=== PATIENT | male | born 1965 | race Caucasian/White ===

== ENCOUNTER 2018-02-21 16:51 | Emergency (ER) | payer MEDICAID ==
[2018-02-21 16:57] VITALS: BP 146/83
[2018-02-21] MEDS ORDERED: CEPHALEXIN 250 MG Prepack 8 PO ONE (17:30)
--- NOTE | 2018-02-21 17:32 | ED Physician Documentation ---
PD HPI WOUND RECHECK - Stated complaint Stated Complaint: RT LEG WOUND/SHARP PX UP LEG - Chief complaint Chief Complaint: Wound - Histroy obtained from History obtained from: Patient - History of Present Illness Location: Other (He was pressure washing about 2 years ago and got a little lesion from it on his right ankle. Over the last month after scratching at the area of redness has increased and he has severe itchiness of the area that is now spreading up the leg.) Review of Systems Constitutional: denies: Fever, Chills, Myalgias, Fatigue, Weight Loss, Sweats Cardiac: denies: Chest pain / pressure, Palpitations Respiratory: denies: Dyspnea, Cough PD PAST MEDICAL HISTORY - Past Medical History GI: Hepatitis - Past Surgical History Past Surgical History: Yes General: Appendectomy - Present Medications Home Medications: Ambulatory Orders Medication Instructions Recorded Confirmed Cephalexin [Keflex] 500 mg PO QID #40 capsule 02/21/18 - Allergies Allergies/Adverse Reactions: Allergies Allergy/AdvReac Type Severity Reaction Status Date / Time No Known Drug Allergies Allergy Verified 02/21/18 16:57 - Social History Does the pt smoke?: Yes Smoking Status: Current every day smoker Does the pt drink ETOH?: Yes Does the pt have substance abuse?: Yes - Immunizations Immunizations are current?: Yes - POLST Patient has POLST: No PD ED PE NORMAL - Vitals Vital signs reviewed: Yes - General General: Alert and oriented X 3, No acute distress - Derm Derm: Other (There is a 3 x 3 cm of slightly denuded area over the medial malleolus of the right ankle with surrounding cellulitis) - Neuro Neuro: Alert and oriented X 3, Normal speech Results - Vitals Vitals: Vital Signs - 24 hr 02/21/18 16:53 Temperature 36.5 C Heart Rate 110 H Respiratory 16 Rate Blood Pressure 146/83 H O2 Saturation 100 Oxygen O2 Source Room air PD MEDICAL DECISION MAKING - Sepsis Event Vital Signs: Vital Signs - 24 hr 02/21/18 16:53 Temperature 36.5 C Heart Rate 110 H Respiratory 16 Rate Blood Pressure 146/83 H O2 Saturation 100 Oxygen O2 Source Room air Departure - Departure Disposition: 01 Home, Self Care Clinical Impression: Cellulitis Condition: Good Record reviewed to determine appropriate education?: Yes Instructions: ED Cellulitis Facial Follow-Up: [facility] [Provider Group] Prescriptions: Cephalexin [Keflex] 500 mg PO QID #40 capsule Comments: Your blood pressure was elevated today on check into the emergency department. This does not mean that you have hypertension, it is a common phenomenon to come to the emergency department and have elevated blood pressure. I recommend that you see your primary care physician within the week to have it rechecked when you are feeling better. Discharge Date/Time: 02/21/18 17:50
== END 2018-02-21 17:50 | disposition home or self-care (01) ==
LOC: ED 16:51
DX: L03.115 Cellulitis of right lower limb (principal); R03.0 Elevated blood-pressure reading, without diagnosis of hypertension; F17.200 Nicotine dependence, unspecified, uncomplicated
CPT/HCPCS: 99283

== ENCOUNTER 2018-07-15 13:33 | Observation (INO) | payer MEDICAID, OTHER ==
[2018-07-15] MEDS ORDERED: cefTRIAXone 1 GM in SODIUM CHLORIDE 0.9% MINIBAG 100 ML IV STA (14:38)
[2018-07-15 15:12] LABS: BASOPHILS # (AUTO) 0.1 10^3/uL (0.0-0.1); BASOPHILS % (AUTO) 0.7 %; EOSINOPHILS # (AUTO) 0.5 10^3/uL (0.0-0.7); EOSINOPHILS % (AUTO) 4.2 %; HGB - HEMOGLOBIN 13.3 g/dL (14.0-18.0); LYMPHOCYTES # (AUTO) 3.1 10^3/uL (1.5-3.5); LYMPHOCYTES % (AUTO) 25.7 %; MEAN CORPUSCULAR HEMOGLOBIN 30.6 pg (27.0-31.0); MEAN CORPUSCULAR HGB CONC 33.7 g/dL (32.0-36.0); MONOCYTES % (AUTO) 7.9 %; NEUTROPHILS # (AUTO) 7.5 10^3/uL (1.5-6.6); NEUTROPHILS % (AUTO) 61.5 %; PLT - PLATELET COUNT 422 10^3/uL (130-450); RED BLOOD COUNT 4.33 10^6/uL (4.70-6.10); RED CELL DISTRIBUTION WIDTH 13.8 % (12.0-15.0); WHITE BLOOD COUNT 12.1 x10^3/uL (4.8-10.8)
[2018-07-15 15:22] LABS: ALBUMIN 3.7 g/dL (3.2-5.5); ALKALINE PHOSPHATASE 84 IU/L (42-121); ALT ALANINE AMINOTRANSFERASE 20 IU/L (10-60); AST ASPARTATE AMINOTRANSFERASE 19 IU/L (10-42); BILIRUBIN,TOTAL < 0.2 mg/dL (0.2-1.0); BUN - BLOOD UREA NITROGEN 21 mg/dL (6-20); CALCIUM 8.9 mg/dL (8.5-10.3); CARBON DIOXIDE - CO2 28 mmol/L (21-32); CHLORIDE 101 mmol/L (101-111); CREATININE 0.8 mg/dL (0.6-1.2); GFR - MDRD 102 (>89); GLUCOSE 120 mg/dL (70-100); LIPASE 28 U/L (22-51); SODIUM 137 mmol/L (135-145); TOTAL PROTEIN 7.3 g/dL (6.7-8.2)
--- NOTE | 2018-07-15 15:43 | ED Physician Documentation ---
PD HPI SKIN - Stated complaint Stated Complaint: R LEG SWELLING/PX - Chief complaint Chief Complaint: Wound - History obtained from History obtained from: Patient - History of Present Illness Timing - details: Gradual onset Location: RLE Quality / character: Painful, Draining Recently seen: Clinic (Sent here from outpatient clinic.) - Treatment prior to arrival Treatment prior to arrival: Doxycycline for the past three days. - Additional information Additional information: The patient is a 52-year-old male who presents with redness and swelling of his right lower leg. He has a history of cellulitis that initially started 4 months ago. During this period of time he has been treated with 3 different courses of antibiotics, including doxycycline, Bactrim, and cephalexin. It has improved with antibiotics in the past. However during the past week it has become worse despite antibiotic treatment with doxycycline for the past 3 days. Prior to that he had been off of antibiotics for about 6 weeks. Last night his dressings and bedding became completely soaked with leakage of fluid from the cellulitic leg. He denies fever. He has no history of diabetes. He denies any recent traumatic injury to his leg. Review of Systems Constitutional: denies: Fever Nose: denies: Congestion Throat: denies: Sore throat Cardiac: denies: Chest pain / pressure Respiratory: denies: Dyspnea, Cough GI: denies: Abdominal Pain, Nausea, Vomiting : denies: Dysuria Skin: reports: Other (Erythema of right lower extremity.) Musculoskeletal: reports: Extremity swelling (Swelling of right lower extremity, with fluid weepage.). denies: Back pain Neurologic: denies: Focal weakness, Numbness, Headache PD PAST MEDICAL HISTORY - Past Medical History Cardiovascular: Hypertension Endocrine/Autoimmune: None GI: Hepatitis - Past Surgical History Past Surgical History: Yes General: Appendectomy - Present Medications Home Medications: Ambulatory Orders Medication Instructions Recorded Confirmed Amlodipine Besylate 10 mg PO DAILY 07/15/18 07/15/18 Doxycycline Hyclate 100 mg PO BID 07/15/18 07/15/18 Losartan Potassium 50 mg PO DAILY 07/15/18 07/15/18 Sulfamethox/Trimeth 800/160 1 tab PO BID 07/15/18 07/15/18 [Bactrim Ds 800/160] hydroCHLOROthiazide 25 mg PO DAILY 07/15/18 07/15/18 [Hydrochlorothiazide] - Allergies Allergies/Adverse Reactions: Allergies Allergy/AdvReac Type Severity Reaction Status Date / Time No Known Drug Allergies Allergy Verified 07/15/18 13:47 - Social History Does the pt smoke?: Yes Smoking Status: Current every day smoker Does the pt drink ETOH?: Yes Does the pt have substance abuse?: Yes - Immunizations Immunizations are current?: Yes - POLST Patient has POLST: No PD ED PE NORMAL - Vitals Vital signs reviewed: Yes (Initially tachycardic.) - General General: Alert and oriented X 3, Well developed/nourished - HEENT HEENT: Atraumatic, Pharynx benign - Neck Neck: No adenopathy, No JVD - Cardiac Cardiac: No murmur, Other (Rapid rate, regular rhythm.) - Respiratory Respiratory: No respiratory distress, Clear bilaterally - Abdomen Abdomen: Soft, Non tender - Back Back: No CVA TTP - Extremities Extremities: No calf tenderness / cord, Other (There is erythema of the right lower extremity from just below the knee down to the ankle. There is transudate of weeping from cellulitic area. There is slight warmth to palpation. Distal neurovascular is intact.) - Neuro Neuro: Alert and oriented X 3, No motor deficit, No sensory deficit Results - Vitals Vitals: Vital Signs - 24 hr 07/15/18 13:43 Temperature 36.3 C L Heart Rate 114 H Respiratory 18 Rate Blood Pressure 134/89 H O2 Saturation 100 Oxygen O2 Source Room air - Labs Labs: Microbiology 07/15/18 14:30 Wound Culture - Preliminary Right Lower Extremity Laboratory Tests 07/15/18 07/15/18 15:00 15:00 WBC 12.1 H RBC 4.33 L Hgb 13.3 L Hct 39.4 L MCV 91.0 MCH 30.6 MCHC 33.7 RDW 13.8 Plt Count 422 MPV 7.0 L Neut # (Auto) 7.5 H Lymph # (Auto) 3.1 [place] # (Auto) 1.0 Eos # (Auto) 0.5 Baso # (Auto) 0.1 Absolute Nucleated RBC 0.00 Nucleated RBC % 0.0 Sodium 137 Potassium 3.7 Chloride 101 Carbon Dioxide 28 Anion Gap 8.0 BUN 21 H Creatinine 0.8 Estimated GFR (MDRD) 102 Glucose 120 H Calcium 8.9 Total Bilirubin < 0.2 L AST 19 ALT 20 Alkaline Phosphatase 84 Total Protein 7.3 Albumin 3.7 Globulin 3.6 Albumin/Globulin Ratio 1.0 Lipase 28 PD MEDICAL DECISION MAKING - ED course Complexity details: reviewed old records, reviewed results, re-evaluated patient, considered differential, d/w patient, d/w community health consultant ED course: The patient's presentation is significant for cellulitis of the right lower extremity, progressing despite outpatient oral antibiotics. His presentation does not suggest sepsis. I doubt DVT. His white blood cell count is mildly elevated at 12.1. Treatment in the emergency department included administration of ceftriaxone 1 g IV. A swab of a weeping blister was sent to the lab for culture and sensitivity. I discussed his condition with Dr. Nielsen, who accepts him for further evaluation and treatment. Departure - Departure Disposition: ED Place in Observation Clinical Impression: Cellulitis Condition: Stable Discharge Date/Time: 07/15/18 17:15
[2018-07-15] MEDS ORDERED: ACETAMINOPHEN 325 MG TABLET PO PRN (16:09)
[2018-07-15] MEDS ORDERED: ONDANSETRON 4 MG/2 ML VIAL IVP PRN (16:09)
[2018-07-15] MEDS ORDERED: ZOLPIDEM 5 MG TABLET PO PRN (16:09)
[2018-07-15] MEDS ORDERED: SODIUM CHLORIDE FLUSH 0.9% 10 ML SYRINGE IVP PRN (16:09)
[2018-07-15] MEDS ORDERED: oxyCODONE 5 MG TABLET PO PRN ×2 (16:09)
[2018-07-15] MEDS ORDERED: PROCHLORPERAZINE 10 MG/2 ML VIAL IVP PRN (16:09)
[2018-07-15] MEDS ORDERED: PROMETHAZINE 25 MG/1 ML VIAL IM PRN (16:09)
--- NOTE | 2018-07-15 16:43 | HISTORY & PHYSICAL EXAMINATION ---
Chief Complaint - Chief Complaint Chief Complaint: Right leg redness, swelling and pain History of Present Illness - Admitted From Admitted From:: Emergency department - History Obtained From Records Reviewed: Yes History obtained from: Patient Exam Limitations: None - History of Present Illness HPI Comment/Other: Patient is a very pleasant 52-year-old gentleman with a past medical history significant for hypertension, multiple fractures of his right foot due to a work-related accident and recurrent cellulitis of his right lower extremity over the last 4 months. The patient states that he first noticed that he had redness and swelling of his right leg about 4 months ago and at that time was placed on antibiotics. The patient states that he was seen in the emergency department at [facility]. He states that the redness seemed to improve and then a few weeks later he developed it again. He states this time he was seen at [facility] and again placed on antibiotics. He states that he has had 2-3 more occurrences over the last 4 months and each time it was treated outpatient with antibiotics. He has never been hospitalized with the infection of his right leg. He states 2 weeks ago he began noticing that he was again having redness he states that it was localized in his right ankle up to his mid tinajero. He states that 5 days ago it had gotten significantly worse and 3 days ago he went to see his primary care physician who prescribed him doxycycline and Bactrim. He states that since taking those medications the cellulitis has worsened and he is having increasing pain in his right leg with increasing redness and swelling. He states that the area of redness is spread from around his ankle and mid tinajero all the way down his right foot and up to nearly his kneecap. The patient states that he has had chills at home but no fevers. The patient states that his leg has been losing but he has not noticed any pus. Patient denies any headaches, blurred vision, runny nose, sore throat, nasal congestion, difficulty swallowing, chest pain, shortness of air, orthopnea, PND, cough, abdominal pain, nausea, vomiting, diarrhea, constipation, urinary urgency, urinary frequency, dysuria, polyuria, polydipsia, back pain, neck stiffness, recent unintentional weight loss, changes in his appetite, muscle aches, joint pains, hair loss, night sweats or any focal neurologic deficits. The patient does admit to a rash since starting the antibiotics on his arm and abdominal wall. He states it has been very itchy and is localized. On presentation to the emergency department the patient was afebrile but he was tachycardic and slightly hypertensive. The patient was not in any respiratory distress and was saturating well on room air. The patient underwent routine lab work which did reveal a leukocytosis of 12.1. The patient's lab work was otherwise only remarkable for a slightly elevated glucose of 120. The patient had a significantly swollen, red and tender right lower extremity concerning for a cellulitis. Given that the patient had failed outpatient treatment with oral antibiotics the patient was placed in observation for IV antibiotics and treatment of his right lower extremity cellulitis. History - Past Medical History Cardiovascular: reports: Hypertension Endocrine/Autoimmune: reports: None GI: reports: Hepatitis MRSA Hx?: No Other Past Medical History: Multiple fractures of the right foot - Past Surgical History General: reports: Appendectomy - Family & Social History Family History: Mother: Diabetes, Type 2, Other family: Cancer (Aunt brain tumor) Living arrangement: At home Living Situation: Alone Social History Notes: The patient lives alone in [place]. Patient moved to [facility] in 2003. He is originally from [facility]. He is . He does not have any children. He works in construction. He does smo ke 1 pack a day and has been smoking since he was 18 years old. He also drinks 2-3 beers a day and denies any illicit drug use per - POLST Patient has POLST: No POLST Status: Full Code Meds/Allgy - Home Medications Home Medications: Ambulatory Orders Medication Instructions Recorded Confirmed Amlodipine Besylate 10 mg PO DAILY 07/15/18 07/15/18 Doxycycline Hyclate 100 mg PO BID 07/15/18 07/15/18 Losartan Potassium 50 mg PO DAILY 07/15/18 07/15/18 Sulfamethox/Trimeth 800/160 1 tab PO BID 07/15/18 07/15/18 [Bactrim Ds 800/160] hydroCHLOROthiazide 25 mg PO DAILY 07/15/18 07/15/18 [Hydrochlorothiazide] - Allergies Allergies/Adverse Reactions: Allergies Allergy/AdvReac Type Severity Reaction Status Date / Time No Known Drug Allergies Allergy Verified 07/15/18 13:47 Review of Systems - Other Findings Other Findings: A comprehensive review of systems was performed the pertinent positives and negatives are stated above in the HPI and the remainder of the review of systems is negative. Prior Level of Functionality: Completely independent with all his activities of daily living Exam - Vital Signs Reviewed Vital Signs: Yes Vital Signs: Vital Signs x48h Temp Pulse Resp BP Pulse Ox 07/15/18 13:43 36.3 C L 114 H 18 134/89 H 100 - Physical Exam General Appearance: positive: No acute distress, Alert Eyes Bilateral: positive: Normal inspection, PERRL, EOMI, No lid inflammation, Conjunctivae nml, No scleral icterus ENT: positive: ENT inspection nml, Pharynx nml, No signs of dehydration. negative: Purulent nasal drainage, Pharyngeal erythema, Oral lesions Neck: positive: Nml inspection, Thyroid nml, No JVD, Trachea midline. negative: Lymphadenopathy (R), Lymphadenopathy (L), Stiff neck, Carotid bruit, Tracheal deviation Respiratory: positive: Chest non-tender, No respiratory distress, Breath sounds nml. negative: Wheezes, Rales, Rhonchi Cardiovascular: positive: Regular rate & rhythm, No murmur, No gallop Peripheral Pulses: positive: 2+ Abdomen: positive: Non-tender, No organomegaly, Nml bowel sounds, No distention. negative: Guarding, Rebound, Hepatomegaly Back: positive: Nml inspection. negative: CVA tenderness (R), CVA tenderness (L) Skin: positive: Color nml, No rash, Warm, Dry, Other (Right lower extremity swollen, red, warm, tender with serosanguineous oozing. Patient also has a maculopapular rash over his right arm and on his abdominal wall which appears allergic.) Extremities: positive: Non-tender, Full ROM, Nml appearance, Other (Right lower extremity edema) Neurologic/Psychiatric: positive: Oriented x3, CN's nml (2-12), Motor nml, Sensation nml, Mood/affect nml Conclusion/Plan - Problem List (1) Cellulitis of right lower extremity Conclusion/Plan: The patient has been having recurrent episodes of cellulitis of his right lower extremity for the last 4 months. The patient has had previous fractures of that right foot. The patient has been treated with oral antibiotics multiple times to which he states he did respond in the past. He developed worsening cellulitis about 5 days ago and was placed on oral antibiotics 3 days ago with doxycycline and Bactrim but states that the cellulitis has progressed since he started the antibiotics. It now covers all the way from his lower foot to nearly his knee. The leg is swollen, red, warm and oozing. Culture was taken from the leg in the emergency department. Given that the patient has failed outpatient treatment and his right lower extremity cellulitis is worsening the patient is being placed in observation for IV antibiotics and may need full admission if he does not respond overnight. Plan: IV vancomycin for treatment of right lower extremity cellulitis Wound culture Monitor closely Consider the right lower extremity with a CT scan if patient is not improving in 24 hours or begins to worsen or develops sepsis (2) Hypertension Conclusion/Plan: Patient has a history of hypertension. Patient's blood pressure was elevated on presentation. Likely secondary to being in pain. The patient will be continued on his home medication for hypertension. The patient will be monitored for his blood pressure while he is hospitalized and we will titrate medication if needed. Qualifiers: Hypertension type: essential hypertension Qualified Code(s): I10 - Essential (primary) hypertension (3) Hyperglycemia Conclusion/Plan: Patient does not have a history of diabetes but presented with hyperglycemia. On presentation the patient's blood glucose was 120. Patient does have a family history of diabetes and is borderline obese. We will check a hemoglobin A1c. (4) Tobacco abuse Conclusion/Plan: Patient smokes a pack a day and has been doing so for 34 years. Patient will be placed on nicotine patch while he is hospitalized. - Lab Results Lab results reviewed: Yes Fish Bones: 07/15/18 15:00 07/15/18 15:00 Other Lab Results: Laboratory Results WBC 12.1 x10^3/uL (4.8-10.8) H 07/15/18 15:00 RBC 4.33 10^6/uL (4.70-6.10) L 07/15/18 15:00 Hgb 13.3 g/dL (14.0-18.0) L 07/15/18 15:00 Hct 39.4 % (42.0-52.0) L 07/15/18 15:00 MCV 91.0 fL (80.0-94.0) 07/15/18 15:00 MCH 30.6 pg (27.0-31.0) 07/15/18 15:00 MCHC 33.7 g/dL (32.0-36.0) 07/15/18 15:00 RDW 13.8 % (12.0-15.0) 07/15/18 15:00 Plt Count 422 10^3/uL (130-450) 07/15/18 15:00 MPV 7.0 fL (7.4-11.4) L 07/15/18 15:00 Neut # (Auto) 7.5 10^3/uL (1.5-6.6) H 07/15/18 15:00 Lymph # (Auto) 3.1 10^3/uL (1.5-3.5) 07/15/18 15:00 [place] # (Auto) 1.0 10^3/uL (0.0-1.0) 07/15/18 15:00 Eos # (Auto) 0.5 10^3/uL (0.0-0.7) 07/15/18 15:00 Baso # (Auto) 0.1 10^3/uL (0.0-0.1) 07/15/18 15:00 Absolute Nucleated RBC 0.00 x10^3/uL 07/15/18 15:00 Nucleated RBC % 0.0 /100WBC 07/15/18 15:00 Sodium 137 mmol/L (135-145) 07/15/18 15:00 Potassium 3.7 mmol/L (3.5-5.0) 07/15/18 15:00 Chloride 101 mmol/L (101-111) 07/15/18 15:00 Carbon Dioxide 28 mmol/L (21-32) 07/15/18 15:00 Anion Gap 8.0 (6-13) 07/15/18 15:00 BUN 21 mg/dL (6-20) H 07/15/18 15:00 Creatinine 0.8 mg/dL (0.6-1.2) 07/15/18 15:00 Estimated GFR (MDRD) 102 (>89) 07/15/18 15:00 Glucose 120 mg/dL (70-100) H 07/15/18 15:00 Calcium 8.9 mg/dL (8.5-10.3) 07/15/18 15:00 Total Bilirubin < 0.2 mg/dL (0.2-1.0) L 07/15/18 15:00 AST 19 IU/L (10-42) 07/15/18 15:00 ALT 20 IU/L (10-60) 07/15/18 15:00 Alkaline Phosphatase 84 IU/L (42-121) 07/15/18 15:00 Total Protein 7.3 g/dL (6.7-8.2) 07/15/18 15:00 Albumin 3.7 g/dL (3.2-5.5) 07/15/18 15:00 Globulin 3.6 g/dL (2.1-4.2) 07/15/18 15:00 Albumin/Globulin Ratio 1.0 (1.0-2.2) 07/15/18 15:00 Lipase 28 U/L (22-51) 07/15/18 15:00 Core Measures - Anticipated LOS I expect patient to be DC'd or transferred within 96 hours.: Yes - DVT/VTE - Prophylaxis VTE/DVT Prophylaxis med ordered at admit?: Yes
[2018-07-15] MEDS ORDERED: VANCOMYCIN PER PHARMACY 0 GM in SODIUM CHLORIDE 0.9% 250 ML IV SCH (17:00)
[2018-07-15] MEDS: SODIUM CHLORIDE 0.9% 1,000 ML IV SCH (17:43)
[2018-07-15] MEDS: SACCHAROMYCES BOULARDII 250 MG CAPSULE PO SCH (17:43)
[2018-07-15] MEDS: SODIUM CHLORIDE FLUSH 0.9% 10 ML SYRINGE IVP SCH (17:44)
[2018-07-15] MEDS ORDERED: VANCOMYCIN INJ 2 GM in SODIUM CHLORIDE 0.9% 500 ML IV SCH (18:00)
[2018-07-15] MEDS: FAMOTIDINE 20 MG TABLET PO SCH (20:30)
[2018-07-16] MEDS: VANCOMYCIN INJ 1 GM in SODIUM CHLORIDE 0.9% 250 ML IV SCH ×3 (02:50→18:53)
[2018-07-16] MEDS: SODIUM CHLORIDE FLUSH 0.9% 10 ML SYRINGE IVP SCH ×3 (02:53→16:17)
[2018-07-16] MEDS: SODIUM CHLORIDE 0.9% 1,000 ML IV SCH ×3 (04:24→22:51)
[2018-07-16 05:43] LABS: CALCIUM 8.1 mg/dL (8.5-10.3); CREATININE 0.8 mg/dL (0.6-1.2)
[2018-07-16 05:48] LABS: BASOPHILS # (AUTO) 0.1 10^3/uL (0.0-0.1); BASOPHILS % (AUTO) 0.9 %; EOSINOPHILS # (AUTO) 0.8 10^3/uL (0.0-0.7); HGB - HEMOGLOBIN 13.4 g/dL (14.0-18.0); LYMPHOCYTES # (AUTO) 3.6 10^3/uL (1.5-3.5); LYMPHOCYTES % (AUTO) 37.1 %; MEAN CORPUSCULAR HEMOGLOBIN 32.2 pg (27.0-31.0); MEAN CORPUSCULAR VOLUME 91.8 fL (80.0-94.0); MEAN PLATELET VOLUME 7.2 fL (7.4-11.4); MONOCYTES # (AUTO) 0.8 10^3/uL (0.0-1.0); MONOCYTES % (AUTO) 7.8 %; NEUTROPHILS # (AUTO) 4.5 10^3/uL (1.5-6.6); NEUTROPHILS % (AUTO) 46.2 %; PLT - PLATELET COUNT 384 10^3/uL (130-450); RED BLOOD COUNT 4.18 10^6/uL (4.70-6.10); RED CELL DISTRIBUTION WIDTH 13.6 % (12.0-15.0); WHITE BLOOD COUNT 9.7 x10^3/uL (4.8-10.8)
[2018-07-16 07:46] LABS: HB2 TOTAL 14.7 g/dL; HEMOGLOBIN A1C 0.61 g/dL; HEMOGLOBIN A1C % 5.9 % (4.6-6.2)
[2018-07-16] MEDS: hydroCHLOROthiazide 25 MG TABLET PO SCH (08:14)
[2018-07-16] MEDS: LOSARTAN 50 MG TABLET PO SCH (08:14)
[2018-07-16] MEDS: amLODIPine 5 MG TABLET PO SCH (08:15)
[2018-07-16] MEDS: SACCHAROMYCES BOULARDII 250 MG CAPSULE PO SCH ×2 (08:15→16:17)
[2018-07-16] MEDS: POLYETHYLENE GLYCOL 3350 17 GM PACKET PO SCH (08:15)
[2018-07-16] MEDS: FAMOTIDINE 20 MG TABLET PO SCH ×2 (08:15→20:56)
[2018-07-16] MEDS: NICOTINE 21 MG PATCH TOP SCH (08:15)
[2018-07-16] MEDS: ENOXAPARIN 40 MG/0.4 ML SYRINGE SUBQ SCH (08:16)
[2018-07-16] MEDS ORDERED: PETROLATUM WHITE 5 GM PACKET TOP ONE (11:29)
[2018-07-16] MEDS: diphenhydrAMINE 25 MG CAPSULE PO PRN ×2 (13:57→21:06)
--- NOTE | 2018-07-16 14:30 | PROVIDER PROGRESS NOTE ---
Assessment/Plan - Problem List (1) Cellulitis of right lower extremity Assessment/Plan: The patient has been having recurrent episodes of cellulitis of his right lower extremity for the last 4 months. The patient has had previous fractures of that right foot. The patient has been treated with oral antibiotics multiple times to which he states he did respond in the past. He developed worsening cellulit is about 5 days ago and was placed on oral antibiotics 3 days ago with doxycycline and Bactrim but states that the cellulitis has progressed since he started the antibiotics. It now covers all the way from his lower foot to nearly his knee. The leg is swollen, red, warm and oozing. Culture was taken from the leg in the emergency department. G Slowly improving but still significant swelling, redness and oozing WBC improved Plan: Continue IV vanco for at least 1 more day WOund cx growing staph aureus with sensitivities to follow Will de-escalate abx depending to sensitivities Wound consult (2) Hypertension Conclusion/Plan: BP is stable Continue home meds Qualifiers: Hypertension type: essential hypertension Qualified Code(s): I10 - Essential (primary) hypertension (3) Hyperglycemia Conclusion/Plan: HbA1C is 5.9 BG stable (4) Tobacco abuse Conclusion/Plan: Patient smokes a pack a day and has been doing so for 34 years. Patient offered a nicotine patch but refused. Monitor cellulitis for one more night with IV abx and await sensitivities - Current Meds Current Meds: Current Medications Generic Name Dose Route Start Last Admin Trade Name Freq PRN Reason Stop Dose Admin Amlodipine Besylate 10 mg 07/16/18 09:00 07/16/18 08:15 Norvasc PO 10 mg DAILY ABISAI Administration Diphenhydramine HCl 25 mg 07/16/18 13:29 07/16/18 13:57 Benadryl PO 25 mg Q4HR PRN Administration Allergy Symptoms Enoxaparin Sodium 40 mg 07/16/18 09:00 07/16/18 08:16 Lovenox SUBQ Not Given DAILY ABISAI Famotidine 20 mg 07/15/18 21:00 07/16/18 08:15 Pepcid PO 20 mg BID ABISAI Administration Hydrochlorothiazide 25 mg 07/16/18 09:00 07/16/18 08:14 Hydrodiuril PO 25 mg DAILY ABISAI Administration Sodium Chloride 1,000 mls @ 100 mls/hr 07/15/18 17:00 07/16/18 08:27 Normal Saline 0.9% IV 100 mls/hr .Q10H ABISAI Administration Vancomycin HCl 1 gm/ Sodium 250 mls @ 167 mls/hr 07/16/18 02:00 07/16/18 13:16 Chloride IV Infused Q8H ABISAI Infusion Losartan Potassium 50 mg 07/16/18 09:00 07/16/18 08:14 Cozaar PO 50 mg DAILY ABISAI Administration Nicotine 1 patch 07/16/18 09:00 07/16/18 08:15 Nicoderm TOP Not Given DAILY ABISAI Polyethylene Glycol 17 gm 07/16/18 09:00 07/16/18 08:15 Miralax PO Not Given DAILY ABISAI Saccharomyces Boulardii 250 mg 07/15/18 17:00 07/16/18 08:15 Florastor PO 250 mg BIDWM ABISAI Administration Sodium Chloride 10 ml 07/15/18 17:00 07/16/18 08:15 Normal Saline Flush 0.9% IVP Not Given 0100,0900,1700 ABISAI - Lab Result Lab results reviewed: Yes Fish Bone Diagrams: 07/16/18 05:10 07/16/18 05:10 - Additional Planning Condition/Complexity: Improved My Orders: My Active Orders 07/15/18 16:09 Activity Orders [RC] QSHIFT IO [RC] IOSHIFT Initiate Bowel Care Protocol [RC] .protocol Initiate Line Care Protocol [RC] QSHIFT Initiate Personal Care Protoco [RC] .protocol Oxygen Therapy [RC] .PRN Vital Signs [RC] 0800,1600,0000 Acetaminophen [Tylenol] 650 mg PO Q4HR PRN Ondansetron Inj [Zofran Inj] 4 mg IVP Q6HR PRN Prochlorperazine Inj [Compazine Inj] 10 mg IVP Q6HR PRN Promethazine Inj [Phenergan Inj] 25 mg IM Q6HR PRN Sodium Chloride Flush 0.9% [Normal Saline Flush 0.9%] 10 ml IVP PRN PRN Zolpidem [Ambien] 5 mg PO QPM PRN oxyCODONE [Roxicodone] 10 mg PO Q4HR PRN oxyCODONE [Roxicodone] 5 mg PO Q4HR PRN Code Status [OTHERS] Routine Condition of Patient [OTHERS] Routine DVT Prophylaxis [OTHERS] Routine 07/15/18 17:00 Saccharomyces Boulardii [Florastor] 250 mg PO BIDWM Sodium Chloride 0.9% [Normal Saline 0.9%] 1,000 ml IV 100 mls/hr Sodium Chloride Flush 0.9% [Normal Saline Flush 0.9%] 10 ml IVP 0100,0900,1700 07/15/18 21:00 Famotidine [Pepcid] 20 mg PO BID 07/15/18 Dinner Regular Diet [DIET] 07/16/18 Wound Consult MAC [MAC] Routine 07/16/18 02:00 Vancomycin Inj [Vancomycin] 1 gm Sodium Chloride 0.9% [Normal Saline 0.9%] 250 ml IV Q8H 07/16/18 09:00 Enoxaparin [Lovenox] 40 mg SUBQ DAILY Losartan [Cozaar] 50 mg PO DAILY Nicotine 21 mg Patch [Nicoderm] 1 patch TOP DAILY Polyethylene Glycol 3350 [Miralax] 17 gm PO DAILY amLODIPine [Norvasc] 10 mg PO DAILY hydroCHLOROthiazide [Hydrodiuril] 25 mg PO DAILY 07/16/18 13:29 diphenhydrAMINE [Benadryl] 25 mg PO Q4HR PRN 07/17/18 05:00 BMP - BASIC METABOLIC PANEL [CHEM] DAILYLAB CBC - COMP BLD CT W/AUTO DIFF [HEME] DAILYLAB 07/18/18 05:00 BMP - BASIC METABOLIC PANEL [CHEM] DAILYLAB CBC - COMP BLD CT W/AUTO DIFF [HEME] DAILYLAB 07/19/18 05:00 BMP - BASIC METABOLIC PANEL [CHEM] DAILYLAB CBC - COMP BLD CT W/AUTO DIFF [HEME] DAILYLAB Plan Discussed with:: Patient Time Spent: 31-60 minutes Subjective - Subjective Patient Reports: Feeling Better, Resting Comfortably, Other (Pain in right leg when he ambulates. Denies any fevers or chills.) Nursing Reports: No Complaints Objective Vital Signs: Vital Signs - 24 hr 07/15/18 07/15/18 07/15/18 17:04 17:37 23:50 Temperature 36.7 C 36.5 C 36.8 C Heart Rate 103 H Heart Rate [ 99 104 H Radial] Respiratory 16 16 16 Rate Blood Pressure 123/84 H Blood Pressure [Left Brachial artery] Blood Pressure 125/76 123/74 [Right Brachial artery] O2 Saturation 100 99 98 07/16/18 07/16/18 07:33 12:57 Temperature 36.4 C L 36.8 C Heart Rate Heart Rate [ 92 87 Radial] Respiratory 18 16 Rate Blood Pressure Blood Pressure 107/66 119/63 [Left Brachial artery] Blood Pressure [Right Brachial artery] O2 Saturation 98 99 Oxygen O2 Source Room air I&O (Last 24 Hrs): Intake and Output Totals x24h 07/14/18 07/15/18 07/16/18 23:59 23:59 23:59 Intake Total 840 2850.000 Output Total 450 Balance 840 2400.000 General: Alert, Oriented x3, Cooperative, No acute distress HEENT: Atraumatic, PERRLA, EOMI, Mucous membr. moist/pink Neck: Supple, No JVD, No thyromegaly, +2 carotid pulse wo bruit, No LAD Lymphatic: no adenopathy Neuro: Alert, Non Focal, CN 2-12 Grossly Intact, Oriented Times 3 Cardiovascular: Regular rate, Normal S1, Normal S2, No murmurs Respiratory: Chest non-tender, No respiratory distress, Breath sounds nml Abdomen: Normal bowel sounds, Soft, No tenderness, No hepatospenomegaly Extremities: Other (Right lower extremity redness, swelling, tender, warmth, mild improvment in redness.) Comments/Notes: Redness, swelling, tenderness of right lower extremity - Results Results: Laboratory Results WBC 9.7 x10^3/uL (4.8-10.8) 07/16/18 05:10 RBC 4.18 10^6/uL (4.70-6.10) L 07/16/18 05:10 Hgb 13.4 g/dL (14.0-18.0) L 07/16/18 05:10 Hct 38.4 % (42.0-52.0) L 07/16/18 05:10 MCV 91.8 fL (80.0-94.0) 07/16/18 05:10 MCH 32.2 pg (27.0-31.0) H 07/16/18 05:10 MCHC 35.0 g/dL (32.0-36.0) 07/16/18 05:10 RDW 13.6 % (12.0-15.0) 07/16/18 05:10 Plt Count 384 10^3/uL (130-450) 07/16/18 05:10 MPV 7.2 fL (7.4-11.4) L 07/16/18 05:10 Neut # (Auto) 4.5 10^3/uL (1.5-6.6) 07/16/18 05:10 Lymph # (Auto) 3.6 10^3/uL (1.5-3.5) H 07/16/18 05:10 [place] # (Auto) 0.8 10^3/uL (0.0-1.0) 07/16/18 05:10 Eos # (Auto) 0.8 10^3/uL (0.0-0.7) H 07/16/18 05:10 Baso # (Auto) 0.1 10^3/uL (0.0-0.1) 07/16/18 05:10 Absolute Nucleated RBC 0.00 x10^3/uL 07/16/18 05:10 Nucleated RBC % 0.0 /100WBC 07/16/18 05:10 Sodium 135 mmol/L (135-145) 07/16/18 05:10 Potassium 4.1 mmol/L (3.5-5.0) 07/16/18 05:10 Chloride 103 mmol/L (101-111) 07/16/18 05:10 Carbon Dioxide 28 mmol/L (21-32) 07/16/18 05:10 Anion Gap 4.0 (6-13) L 07/16/18 05:10 BUN 17 mg/dL (6-20) 07/16/18 05:10 Creatinine 0.8 mg/dL (0.6-1.2) 07/16/18 05:10 Estimated GFR (MDRD) 102 (>89) 07/16/18 05:10 Glucose 102 mg/dL (70-100) H 07/16/18 05:10 Glycated Hemoglobin 5.9 % (4.6-6.2) 07/16/18 05:10 Estim Average Glucose 123 (70-100) H 07/16/18 05:10 Calcium 8.1 mg/dL (8.5-10.3) L 07/16/18 05:10 Total Bilirubin < 0.2 mg/dL (0.2-1.0) L 07/15/18 15:00 AST 19 IU/L (10-42) 07/15/18 15:00 ALT 20 IU/L (10-60) 07/15/18 15:00 Alkaline Phosphatase 84 IU/L (42-121) 07/15/18 15:00 Total Protein 7.3 g/dL (6.7-8.2) 07/15/18 15:00 Albumin 3.7 g/dL (3.2-5.5) 07/15/18 15:00 Globulin 3.6 g/dL (2.1-4.2) 07/15/18 15:00 Albumin/Globulin Ratio 1.0 (1.0-2.2) 07/15/18 15:00 Lipase 28 U/L (22-51) 07/15/18 15:00 ABX Reporting Has patient been on IV antibiotics over the past 48 hours?: No Current Medications - Current Medications Current Medications: Active Medications Acetaminophen (Tylenol) 650 mg PO Q4HR PRN PRN Reason: Pain 1 to 4 Amlodipine Besylate (Norvasc) 10 mg PO DAILY [facility] Last Admin: 07/16/18 08:15 Dose: 10 mg Diphenhydramine HCl (Benadryl) 25 mg PO Q4HR PRN PRN Reason: Allergy Symptoms Last Admin: 07/16/18 13:57 Dose: 25 mg Enoxaparin Sodium (Lovenox) 40 mg SUBQ DAILY [facility] Last Admin: 07/16/18 08:16 Dose: Not Given Famotidine (Pepcid) 20 mg PO BID ABISAI Last Admin: 07/16/18 08:15 Dose: 20 mg Hydrochlorothiazide (Hydrodiuril) 25 mg PO DAILY [facility] Last Admin: 07/16/18 08:14 Dose: 25 mg Sodium Chloride (Normal Saline 0.9%) 1,000 mls @ 100 mls/hr IV .Q10H [facility] Last Admin: 07/16/18 08:27 Dose: 100 mls/hr Vancomycin HCl 1 gm/ Sodium (Chloride) 250 mls @ 167 mls/hr IV Q8H [facility] Last Infusion: 07/16/18 13:16 Dose: Infused Losartan Potassium (Cozaar) 50 mg PO DAILY [facility] Last Admin: 07/16/18 08:14 Dose: 50 mg Nicotine (Nicoderm) 1 patch TOP DAILY [facility] Last Admin: 07/16/18 08:15 Dose: Not Given Ondansetron HCl (Zofran Inj) 4 mg IVP Q6HR PRN PRN Reason: Nausea / Vomiting Oxycodone HCl (Roxicodone) 5 mg PO Q4HR PRN PRN Reason: Pain 5 to 7 Oxycodone HCl (Roxicodone) 10 mg PO Q4HR PRN PRN Reason: Pain 8 to 10 Polyethylene Glycol (Miralax) 17 gm PO DAILY [facility] Last Admin: 07/16/18 08:15 Dose: Not Given Prochlorperazine Edisylate (Compazine Inj) 10 mg IVP Q6HR PRN PRN Reason: Nausea / Vomiting Promethazine HCl (Phenergan Inj) 25 mg IM Q6HR PRN PRN Reason: Nausea / Vomiting Saccharomyces Boulardii (Florastor) 250 mg PO BIDWM [facility] Last Admin: 07/16/18 08:15 Dose: 250 mg Sodium Chloride (Normal Saline Flush 0.9%) 10 ml IVP PRN PRN PRN Reason: NEEDED PER PROVIDER ORDERS Sodium Chloride (Normal Saline Flush 0.9%) 10 ml IVP 0100,0900,1700 [facility] Last Admin: 07/16/18 08:15 Dose: Not Given Zolpidem Tartrate (Ambien) 5 mg PO QPM PRN PRN Reason: Insomnia Amlodipine Besylate 10 mg PO DAILY 07/15/18 Doxycycline Hyclate 100 mg PO BID 07/15/18 Losartan Potassium 50 mg PO DAILY 07/15/18 Sulfamethox/Trimeth 800/160 [Bactrim Ds 800/160] 1 tab PO BID 07/15/18 hydroCHLOROthiazide [Hydrochlorothiazide] 25 mg PO DAILY 07/15/18
[2018-07-17] MEDS: SODIUM CHLORIDE FLUSH 0.9% 10 ML SYRINGE IVP SCH ×2 (01:35→08:53)
[2018-07-17] MEDS: VANCOMYCIN INJ 1 GM in SODIUM CHLORIDE 0.9% 250 ML IV SCH (02:10)
[2018-07-17 06:38] LABS: BASOPHILS # (AUTO) 0.1 10^3/uL (0.0-0.1); BASOPHILS % (AUTO) 1.1 %; EOSINOPHILS # (AUTO) 0.8 10^3/uL (0.0-0.7); EOSINOPHILS % (AUTO) 7.3 %; HGB - HEMOGLOBIN 13.9 g/dL (14.0-18.0); LYMPHOCYTES # (AUTO) 3.5 10^3/uL (1.5-3.5); LYMPHOCYTES % (AUTO) 33.6 %; MEAN CORPUSCULAR HEMOGLOBIN 30.3 pg (27.0-31.0); MEAN CORPUSCULAR HGB CONC 32.2 g/dL (32.0-36.0); MEAN CORPUSCULAR VOLUME 93.9 fL (80.0-94.0); MONOCYTES # (AUTO) 0.9 10^3/uL (0.0-1.0); MONOCYTES % (AUTO) 8.2 %; NEUTROPHILS # (AUTO) 5.2 10^3/uL (1.5-6.6); NEUTROPHILS % (AUTO) 49.8 %; PLT - PLATELET COUNT 418 10^3/uL (130-450); RED BLOOD COUNT 4.58 10^6/uL (4.70-6.10); RED CELL DISTRIBUTION WIDTH 13.6 % (12.0-15.0); WHITE BLOOD COUNT 10.4 x10^3/uL (4.8-10.8)
[2018-07-17 06:46] LABS: CALCIUM 8.6 mg/dL (8.5-10.3); CREATININE 0.8 mg/dL (0.6-1.2)
[2018-07-17 08:11] VITALS: BP 103/57
[2018-07-17] MEDS: SACCHAROMYCES BOULARDII 250 MG CAPSULE PO SCH (08:52)
[2018-07-17] MEDS: LOSARTAN 50 MG TABLET PO SCH (08:52)
[2018-07-17] MEDS: FAMOTIDINE 20 MG TABLET PO SCH (08:52)
[2018-07-17] MEDS: ENOXAPARIN 40 MG/0.4 ML SYRINGE SUBQ SCH ×2 (08:52→08:56)
[2018-07-17] MEDS: amLODIPine 5 MG TABLET PO SCH (08:52)
[2018-07-17] MEDS: hydroCHLOROthiazide 25 MG TABLET PO SCH (08:52)
[2018-07-17] MEDS: POLYETHYLENE GLYCOL 3350 17 GM PACKET PO SCH (08:53)
[2018-07-17] MEDS: NICOTINE 21 MG PATCH TOP SCH (08:53)
--- NOTE | 2018-07-17 08:55 | Discharge Plan ---
Discharge Plan Disposition: Home, Self Care Condition: Fair Prescriptions: Amox/Clav 875/125 [Augmentin] 1 tab PO Q12H #20 tablet Diet: Regular Activity Restrictions: Activity as Tolerated (Dont go back to work till Thursday) Shower Restrictions: No Driving Restrictions: No Weight Bearing: Full Weight Additional Instructions or Follow Up instructions: You came to the emergency department with right leg swelling, redness and pain. You were found to have infection of the right leg with cellulitis. You were treated by her primary care physician with antibiotics orally which did not seem to work. While in the hospital you were given IV antibiotics with which we had a decrease in your swelling, redness and pain. You did undergo culture of your leg which grew a bacteria called Staphylococcus aureus and we have prescribed you an oral antibiotic that should work to eradicate that bacteria and improve your infection. He will continue the antibiotics for 10 days and please follow- up with your primary care physician to ensure that the infection has resolved. You also need to see wound care in our MAC clinic here at the hospital for care of that leg. I have referred you to the wound care clinic and he will also need a referral from your primary care physician. Follow-Up Care: [facility] [place] [facility] - Wound/Ostomy (Right leg wound.) No Smoking: If you smoke, Please STOP! Call for help. Follow-up with: Brock Najera PA-C [Primary Care Provider] -
--- NOTE | 2018-07-17 09:02 | DISCHARGE SUMMARY ---
Discharge Summary Admit Date: 07/15/18 Discharge Date: 07/17/18 Discharging Provider: Ry Nielsen MD Primary Care Provider: Matt Naik MD Code Status: Attempt Resuscitation Condition at Discharge: Fair Discharge Disposition: 01 Home, Self Care - DIAGNOSES Admission Diagnoses: 1. Sialitis of right lower extremity 2. Hypertension 3. Hyperglycemia 4. Tobacco abuse Discharge Diagnoses with Status of Each Condition: 1. Cellulitis of the right lower extremity: Improving 2. Hypertension: Stable 3. Hyperglycemia: Resolved 4. Tobacco abuse: Stable - HPI History of Present Illness: Patient is a very pleasant 52-year-old gentleman with a past medical history significant for hypertension, multiple fractures of his right foot due to a work-related accident and recurrent cellulitis of his right lower extremity over the last 4 months. The patient states that he first noticed that he had redness and swelling of his right leg about 4 months ago and at that time was placed on antibiotics. The patient states that he was seen in the emergency department at [facility]. He states that the redness seemed to improve and then a few weeks later he developed it again. He states this time he was seen at [facility] and again placed on antibiotics. He states that he has had 2-3 more occurrences over the last 4 months and each time it was treated outpat ient with antibiotics. He has never been hospitalized with the infection of his right leg. He states 2 weeks ago he began noticing that he was again having redness he states that it was localized in his right ankle up to his mid tinajero. He states that 5 days ago it had gotten significantly worse and 3 days ago he went to see his primary care physician who prescribed him doxycycline and Bactrim. He states that since taking those medications the cellulitis has worsened and he is having increasing pain in his right leg with increasing redness and swelling. He states that the area of redness is spread from around his ankle and mid tinajero all the way down his right foot and up to nearly his knee cap. The patient states that he has had chills at home but no fevers. The patient states that his leg has been losing but he has not noticed any pus. Patient denies any headaches, blurred vision, runny nose, sore throat, nasal congestion, difficulty swallowing, chest pain, shortness of air, orthopnea, PND, cough, abdominal pain, nausea, vomiting, diarrhea, constipation, urinary urgency, urinary frequency, dysuria, polyuria, polydipsia, back pain, neck stiffness, recent unintentional weight loss, changes in his appetite, muscle aches, joint pains, hair loss, night sweats or any focal neurologic deficits. The patient does admit to a rash since starting the antibiotics on his arm and abdominal wall. He states it has been very itchy and is localized. On presentation to the emergency department the patient was afebrile but he was tachycardic and slightly hypertensive. The patient was not in any respiratory distress and was saturating well on room air. The patient underwent routine lab work which did reveal a leukocytosis of 12.1. The patient's lab work was otherwise only remarkable for a slightly elevated glucose of 120. The patient had a significantly swollen, red and tender right lower extremity concerning for a cellulitis. Given that the patient had failed outpatient treatment with oral antibiotics the patient was placed in observation for IV antibiotics and treatment of his right lower extremity cellulitis. - HOSPITAL COURSE Hospital Course: The patient was placed in observation and treated with IV vancomycin for his right lower extremity cellulitis. The patient had improvement over 2 days of hospitalization. The patient's leukocytosis resolved. He had no fevers while he was hospitalized. The patient's vital signs remained stable. The patient had decrease in swelling of the right leg with decreased pain and decreased intensity of the erythema. The patient continues to have erythema throughout the leg but given the improvement in the swelling and intensity of erythema it was felt that the patient could be transitioned to oral antibiotics and discharged home. The patient did have a culture performed of the drainage from that right lower extremity and it is growing staph aureus. Microbiology showed that the staph aureus was resistant to penicillin but not resistant to Levaquin. The patient was prescribed 750 mg Levaquin for 7 days to complete treatment for cellulitis.. The patient was advised to stay off of work until Thursday as he does work on his knees. The patient was also referred to the wound care clinic at the [facility] [place]. The patient was told to follow-up with his primary care physician once he is completed his antibiotic treatment to ensure that the infection has completely resolved. - ALLERGIES Allergies/Adverse Reactions: Allergies Allergy/AdvReac Type Severity Reaction Status Date / Time No Known Drug Allergies Allergy Verified 07/15/18 13:47 - MEDICATIONS Home Medications: Ambulatory Orders Medication Instructions Recorded Confirmed Amlodipine Besylate 10 mg PO DAILY 07/15/18 07/15/18 Losartan Potassium 50 mg PO DAILY 07/15/18 07/15/18 hydroCHLOROthiazide 25 mg PO DAILY 07/15/18 07/15/18 [Hydrochlorothiazide] Levofloxacin [Levaquin] 750 mg PO DAILY #7 tablet 07/17/18 - PHYSICAL EXAM AT DISCHARGE General Appearance: positive: No acute distress, Alert Eyes Bilateral: positive: Normal inspection, PERRL, EOMI, No lid inflammation, Conjunctivae nml, No scleral icterus ENT: positive: ENT inspection nml, Pharynx nml, No signs of dehydration. negative: Purulent nasal drainage, Pharyngeal erythema, Oral lesions Neck: positive: Nml inspection, Thyroid nml, No JVD, Trachea midline. negative: Thyromegaly, Lymphadenopathy (R), Lymphadenopathy (L), Stiff neck, Carotid bruit, Tracheal deviation Respiratory: positive: Chest non-tender, No respiratory distress, Breath sounds nml. negative: Wheezes, Rales, Rhonchi Cardiovascular: positive: Regular rate & rhythm, No murmur, No gallop Peripheral Pulses: positive: 2+ Abdomen: positive: Non-tender, No organomegaly, Nml bowel sounds, No distention. negative: Guarding, Rebound, Hepatomegaly Back: positive: Nml inspection. negative: CVA tenderness (R), CVA tenderness (L) Skin: positive: Other (The patient has erythema of his right lower extremity from his foot all the way up just below his knee with swelling, dry skin, oozing and tenderness. All of this has improved over the course of the hospitalization but he does continue to still display the signs.) Extremities: positive: Non-tender, Full ROM, Nml appearance, Pedal edema (Right lower extremity) Neurologic/Psychiatric: positive: Oriented x3, CN's nml (2-12), Motor nml, Sensation nml, Mood/affect nml - LABS Result Diagrams: 07/17/18 06:00 07/17/18 06:00 Other Lab Results: Laboratory Results WBC 10.4 x10^3/uL (4.8-10.8) 07/17/18 06:00 RBC 4.58 10^6/uL (4.70-6.10) L 07/17/18 06:00 Hgb 13.9 g/dL (14.0-18.0) L 07/17/18 06:00 Hct 43.1 % (42.0-52.0) 07/17/18 06:00 MCV 93.9 fL (80.0-94.0) 07/17/18 06:00 MCH 30.3 pg (27.0-31.0) 07/17/18 06:00 MCHC 32.2 g/dL (32.0-36.0) 07/17/18 06:00 RDW 13.6 % (12.0-15.0) 07/17/18 06:00 Plt Count 418 10^3/uL (130-450) 07/17/18 06:00 MPV 7.0 fL (7.4-11.4) L 07/17/18 06:00 Neut # (Auto) 5.2 10^3/uL (1.5-6.6) 07/17/18 06:00 Lymph # (Auto) 3.5 10^3/uL (1.5-3.5) 07/17/18 06:00 [place] # (Auto) 0.9 10^3/uL (0.0-1.0) 07/17/18 06:00 Eos # (Auto) 0.8 10^3/uL (0.0-0.7) H 07/17/18 06:00 Baso # (Auto) 0.1 10^3/uL (0.0-0.1) 07/17/18 06:00 Absolute Nucleated RBC 0.00 x10^3/uL 07/17/18 06:00 Nucleated RBC % 0.0 /100WBC 07/17/18 06:00 Sodium 139 mmol/L (135-145) 07/17/18 06:00 Potassium 4.5 mmol/L (3.5-5.0) 07/17/18 06:00 Chloride 105 mmol/L (101-111) 07/17/18 06:00 Carbon Dioxide 27 mmol/L (21-32) 07/17/18 06:00 Anion Gap 7.0 (6-13) 07/17/18 06:00 BUN 18 mg/dL (6-20) 07/17/18 06:00 Creatinine 0.8 mg/dL (0.6-1.2) 07/17/18 06:00 Estimated GFR (MDRD) 102 (>89) 07/17/18 06:00 Glucose 99 mg/dL (70-100) 07/17/18 06:00 Glycated Hemoglobin 5.9 % (4.6-6.2) 07/16/18 05:10 Estim Average Glucose 123 (70-100) H 07/16/18 05:10 Calcium 8.6 mg/dL (8.5-10.3) 07/17/18 06:00 Total Bilirubin < 0.2 mg/dL (0.2-1.0) L 07/15/18 15:00 AST 19 IU/L (10-42) 07/15/18 15:00 ALT 20 IU/L (10-60) 07/15/18 15:00 Alkaline Phosphatase 84 IU/L (42-121) 07/15/18 15:00 Total Protein 7.3 g/dL (6.7-8.2) 07/15/18 15:00 Albumin 3.7 g/dL (3.2-5.5) 07/15/18 15:00 Globulin 3.6 g/dL (2.1-4.2) 07/15/18 15:00 Albumin/Globulin Ratio 1.0 (1.0-2.2) 07/15/18 15:00 Lipase 28 U/L (22-51) 07/15/18 15:00 Microbiology 07/15/18 14:30 Wound Culture - Final Right Lower Extremity Staphylococcus Aureus Microbiology 07/15/18 14:30 Right Lower Extremity Wound Culture - Final Staphylococcus Aureus Microbiology 07/15/18 14:30 Right Lower Extremity Wound Culture - Final Staphylococcus Aureus - FOLLOW UP Follow Up: The patient was admitted for a right lower extremity cellulitis which was lula telly with IV vancomycin while he was hospitalized. The patient did have improvement in the cellulitis of the right leg and was discharged home on oral antibiotics. The patient's wound culture was growing staph aureus therefore the patient was placed on oral levaquin which it was susceptible to. He will continue treatment for 7 days. He will need to follow-up with his primary care physician to ensure that the infection resolves. He is also referred to wound care clinic for further care of that right leg as there does appear to be some chronic component. - TIME SPENT Time Spent in Discharge (Minutes): 35
== END 2018-07-17 09:45 | disposition home or self-care (01) ==
LOC: ED 13:33 → MS2 16:09
PROVIDERS: ADMIT Internal Medicine; ATTEND Internal Medicine
DX: L03.115 Cellulitis of right lower limb (principal); B95.61 Methicillin susceptible Staphylococcus aureus infection as the cause of diseases classified elsewhere; I10 Essential (primary) hypertension; R73.9 Hyperglycemia, unspecified; F17.210 Nicotine dependence, cigarettes, uncomplicated
CPT/HCPCS: 36415; 80048; 80053; 83036; 83690; 85025; 87070; 87181; 87205; 96361; 96365; 96366; 96367; 99283; 99284; A9270; G0378; J3370

== ENCOUNTER 2018-08-11 16:04 | Outpatient (CLI) | payer OTHER ==
--- NOTE | 2018-08-12 11:02 | Ultrasound Report ---
Reason: CELLULITIS,LEG,RIGHT Procedure Date: 08/11/2018 Accession Number: [id number] / [id number] Procedure: US - Ankle Brachial Index CPT Code: FULL RESULT: EXAM: BILATERAL ANKLE/BRACHIAL INDEX EXAM DATE: 08/11/2018 04:53 PM. CLINICAL HISTORY: Cellulitis, leg, right. COMPARISON: None. TECHNIQUE: A blood pressure cuff and pulse volume recording Doppler ultrasound was used to evaluate the arterial pressures in the arms and ankle. No images were acquired. FINDINGS: Brachial pressure: Right brachial artery: 135/87 mmHg, index 1.00 Left brachial artery: 148/83 mmHg, index 1.00 Right ankle pressures: 146/65 mmHg, index 1.0 Left ankle pressures: 162/80 mmHg, index 1.1 Spectral and color duplex interrogation of the right and left posterior tibial arteries and dorsalis pedis arteries demonstrates normal triphasic waveforms with brisk systolic upstroke and vascular patency. IMPRESSION: 1. Right ankle/brachial index: 1.0. 2. Left ankle/brachial index: 1.1. Normal triphasic inflow to the bilateral dorsalis pedis arteries. ANKLE/BRACHIAL INDEX REFERENCE STANDARDS 1.0-1.4: Normal 0.90-0.99: Borderline < 0.9: Abnormal RADIA
== END 2018-08-11 16:05 | disposition home or self-care (01) ==
LOC: DI 16:04
PROVIDERS: ATTEND Family Medicine
DX: L03.115 Cellulitis of right lower limb (principal)
CPT/HCPCS: 93922

== ENCOUNTER 2018-12-09 10:34 | Day surgery (SDC) | payer OTHER ==
[2018-12-09] MEDS ORDERED: LACTATED RINGERS 1,000 ML IV ONE (10:37)
[2018-12-09] MEDS ORDERED: fentaNYL 250 MCG/5 ML VIAL IVP ONE (11:20)
[2018-12-09] MEDS ORDERED: MIDAZOLAM 2 MG/2 ML VIAL IVP ONE (11:20)
[2018-12-09 12:31] VITALS: BP 114/78
== END 2018-12-09 10:35 | disposition home or self-care (01) ==
LOC: SDS 10:34
PROVIDERS: ATTEND Internal Medicine Gastroenterology
PROC: 0DBN8ZZ Excision of Sigmoid Colon, Via Natural or Artificial Opening Endoscopic (ICD-10-PCS; 2018-12-09)
PROC: 0DBP8ZZ Excision of Rectum, Via Natural or Artificial Opening Endoscopic (ICD-10-PCS; principal; 2018-12-09 12:15)
DX: Z12.11 Encounter for screening for malignant neoplasm of colon (principal); K63.5 Polyp of colon; K62.1 Rectal polyp; F17.210 Nicotine dependence, cigarettes, uncomplicated; F10.10 Alcohol abuse, uncomplicated; I10 Essential (primary) hypertension; Z79.899 Other long term (current) drug therapy
CPT/HCPCS: 45380; J3010; J7120

== ENCOUNTER 2019-01-17 12:25 | Outpatient (CLI) | payer OTHER | END 2019-01-17 12:26 | disposition critical access hospital (66) | LOC: EMS 12:25 | PROVIDERS: ATTEND Surgery | DX: R10.32 Left lower quadrant pain (principal) | CPT/HCPCS: A0425; A0429 ==

== ENCOUNTER 2019-01-17 12:37 | Emergency (ER) | payer OTHER ==
[2019-01-17] MEDS ORDERED: HYDROmorphone 1 MG/ML CARPUJECT IVP STA ×2 (12:55→14:01)
[2019-01-17] MEDS ORDERED: ONDANSETRON 4 MG/2 ML VIAL IVP STA (12:55)
--- NOTE | 2019-01-17 12:57 | ED Physician Documentation ---
PD HPI ABD PAIN - Stated complaint Stated Complaint: ABD PX - Chief complaint Chief Complaint: Abd Pain - History obtained from History obtained from: Patient, EMS - History of Present Illness Timing - onset: Today Timing - duration: Minutes Timing - details: Abrupt onset, Still present Quality: Sharp, Pain Location: LLQ Radiation: Left flank Improved by: Other (nothing) Worsened by: Other (nothing) Associated symptoms: Nausea Similar symptoms before: Has not had sx before Recently seen: Not recently seen - Additional information Additional information: 53-year-old male with acute onset of left sided abdominal pain that is severe went to come to the hospital with this pain and his pain was so severe that the person driving him flagged down an ambulance. The patient is transported to hospital with left-sided abdominal pain without modifying factors. Review of Systems Constitutional: denies: Fever Eyes: denies: Decreased vision Ears: denies: Ear pain Nose: denies: Congestion Throat: denies: Sore throat Cardiac: denies: Chest pain / pressure, Palpitations Respiratory: denies: Dyspnea, Cough GI: reports: Abdominal Pain, Nausea, Vomiting : denies: Dysuria, Frequency PD PAST MEDICAL HISTORY - Past Medical History Cardiovascular: Hypertension Respiratory: None Neuro: None Endocrine/Autoimmune: None GI: GERD, Ulcers, Colon polyps, Hepatitis : None HEENT: None Psych: None Musculoskeletal: None Derm: None - Past Surgical History Past Surgical History: Yes General: Appendectomy - Present Medications Home Medications: Ambulatory Orders Medication Instructions Recorded Confirmed Amlodipine Besylate 10 mg PO DAILY 07/15/18 01/17/19 Losartan Potassium 50 mg PO DAILY 07/15/18 01/17/19 hydroCHLOROthiazide 25 mg PO DAILY 07/15/18 01/17/19 [Hydrochlorothiazide] Hydrocodone/Acetaminophen 1 - 2 each PO Q6H PRN #14 tablet 01/17/19 [Hydrocodon-Acetaminophen 5-325] - Allergies Allergies/Adverse Reactions: Allergies Allergy/AdvReac Type Severity Reaction Status Date / Time Sulfa (Sulfonamide AdvReac Hives Verified 08/19/18 14:46 Antibiotics) - Social History Does the pt smoke?: Yes Smoking Status: Current every day smoker Does the pt drink ETOH?: Yes Does the pt have substance abuse?: Yes - Immunizations Immunizations are current?: Yes - POLST Patient has POLST: No POLST Status: Full Code PD ED PE NORMAL - Vitals Vital signs reviewed: Yes (tachypneic and hypertensive ) - General General: Alert and oriented X 3, Well developed/nourished, Other (53 y/o male appears to be in excruciating pain and is diaphoretic and moaning. ) - HEENT HEENT: Atraumatic, PERRL, EOMI - Neck Neck: Supple, no meningeal sign, No bony TTP - Cardiac Cardiac: RRR, No murmur - Respiratory Respiratory: Clear bilaterally, Other (hyperventilating on arrival) - Abdomen Abdomen: Normal bowel sounds, Soft, Non tender, Non distended, No organomegaly - Back Back: No CVA TTP, No spinal TTP - Derm Derm: Normal color, Warm and dry, No rash - Extremities Extremities: No deformity, No edema - Neuro Neuro: Alert and oriented X 3, cigarette examiner 2-12 intact, No motor deficit, No sensory deficit, Normal speech Eye Opening: Spontaneous Motor: Obeys Commands Verbal: Oriented GCS Score: 15 - Psych Psych: Normal mood, Normal affect Results - Vitals Vitals: Vital Signs - 24 hr 01/17/19 01/17/19 01/17/19 12:37 12:48 13:27 Temperature 36.1 C L 36.1 C L Heart Rate 83 90 95 Respiratory 28 H 30 H 22 Rate Blood Pressure 170/81 H 170/81 H 157/88 H O2 Saturation 99 99 96 01/17/19 14:02 Temperature Heart Rate 71 Respiratory 16 Rate Blood Pressure 152/95 H O2 Saturation 93 Oxygen O2 Source Room air Oxygen Flow Rate 2 - Labs Labs: Laboratory Tests 01/17/19 01/17/19 01/17/19 13:53 13:53 14:40 WBC 13.0 H RBC 4.33 L Hgb 13.1 L Hct 39.0 L MCV 90.1 MCH 30.3 MCHC 33.6 RDW 13.2 Plt Count 335 MPV 9.1 Neut # (Auto) 9.7 H Lymph # (Auto) 2.2 [place] # (Auto) 0.8 Eos # (Auto) 0.1 Baso # (Auto) 0.1 Absolute Nucleated RBC 0.00 Nucleated RBC % 0.0 Sodium 136 Potassium 3.3 L Chloride 101 Carbon Dioxide 23 Anion Gap 12.0 BUN 24 H Creatinine 1.0 Estimated GFR (MDRD) 78 L Glucose 133 H Calcium 8.8 Total Bilirubin 0.6 AST 22 ALT 22 Alkaline Phosphatase 63 Total Protein 7.3 Albumin 3.9 Globulin 3.4 Albumin/Globulin Ratio 1.1 Lipase 29 Urine Color YELLOW Urine Clarity CLEAR Urine pH 8.0 H Ur Specific [place] 1.010 Urine Protein NEGATIVE Urine Glucose (UA) NEGATIVE Urine Ketones NEGATIVE Urine Occult Blood NEGATIVE Urine Nitrite NEGATIVE Urine Bilirubin NEGATIVE Urine Urobilinogen 0.2 (NORMAL) Ur Leukocyte Esterase NEGATIVE Ur Microscopic Review NOT INDICATED Urine Culture Comments NOT INDICATED - Rads (name of study) abd/pel Radiology: Prelim report reviewed (Impression: 1. Mild left-sided hydronephrosis with 4 mm obstructing stone in the distal left ureter. Additional nonobstructing stones are seen bilaterally. 2. No acute intra- abdominal abnormality is demonstrated otherwise. ), EMP read indepedently, See rad report Procedures - Bedside sono Bedside sono by EMP: With use of bedside ultrasound the left kidney is imaged and there is evidence of hydronephrosis. The kidney is sonographically nontender. PD MEDICAL DECISION MAKING - ED course Complexity details: reviewed old records, reviewed results, re-evaluated patient, considered differential, d/w patient ED course: Previously well 53-year-old male with acute left flank pain has an obstructing stone on the left at the UVJ. He is administered Dilaudid and Zofran and a liter of saline. He is administered a second dose of Dilaudid and he has marked improvement in his pain at the time of discharge he feels his pain is resolved. Departure - Departure Disposition: 01 Home, Self Care Clinical Impression: Ureterolithiasis Condition: Stable Health Concerns: severe pain in the side Plan of Treatment: pain medication and fluids Care Goals: push the stone through and relieve the pain Assessment: kidney stone in the ureter Instructions: ED Stone Renal W Colic Follow-Up: Brock Najera PA-C [Primary Care Provider] - Prescriptions: Hydrocodone/Acetaminophen [Hydrocodon-Acetaminophen 5-325] 1 - 2 each PO Q6H PRN #14 tablet PRN Reason: pain
[2019-01-17] MEDS ORDERED: SODIUM CHLORIDE 0.9% 1,000 ML IV ONE (13:54)
--- NOTE | 2019-01-17 13:56 | CT Report ---
Reason: left flank pain Procedure Date: 01/17/2019 Accession Number: [id number] / [id number] Procedure: CT - Abdomen/Pelvis WO CPT Code: FULL RESULT: EXAM: CT ABDOMEN AND PELVIS (CT KUB) EXAM DATE: 01/17/2019 01:40 PM. CLINICAL HISTORY: LEFT flank pain. COMPARISONS: None. TECHNIQUE: Routine axial helical CT imaging was performed through the abdomen and pelvis without IV contrast. Reconstructions: Coronal and sagittal. In accordance with CT protocol optimization, one or more of the following dose reduction techniques were utilized for this exam: automated exposure control, adjustment of mA and/or KV based on patient size, or use of iterative reconstructive technique. FINDINGS: Lung Bases: Unremarkable. Right Kidney/Ureter: There are 3-4 nonobstructing small stones measuring 2-3 mm scattered in the upper and lower pole. There is no hydronephrosis or perinephric fat stranding. Left Kidney/Ureter: There is mild hydronephrosis with 4 mm obstructing stone in the distal left ureter near the ureterovesical junction. A few additional nonobstructing stones are seen in the upper and lower pole left kidney measuring up to 6 mm. A simple partly exophytic 3.5 cm cyst is seen in the mid kidney. Other Solid Organs: Noncontrast images of the solid organs are grossly unremarkable. Gallbladder/Bile Ducts: Unremarkable. Peritoneal Cavity: No free fluid, free air or noam adenopathy. Bowel is grossly unremarkable. Pelvic Organs: No bladder stones or wall thickening. Noncontrast images of the visualized pelvic organs are unremarkable. Vasculature: Unremarkable. Other: None. IMPRESSION: 1. Mild left-sided hydronephrosis with 4 mm obstructing stone in the distal left ureter. Additional nonobstructing stones are seen bilaterally. 2. No acute intra-abdominal abnormality is demonstrated otherwise. [facility]
[2019-01-17 14:01] LABS: BASOPHILS # (AUTO) 0.1 10^3/uL (0.0-0.1); BASOPHILS % (AUTO) 0.5 %; EOSINOPHILS # (AUTO) 0.1 10^3/uL (0.0-0.7); EOSINOPHILS % (AUTO) 0.8 %; HGB - HEMOGLOBIN 13.1 g/dL (14.0-18.0); LYMPHOCYTES # (AUTO) 2.2 10^3/uL (1.5-3.5); LYMPHOCYTES % (AUTO) 17.1 %; MEAN CORPUSCULAR HEMOGLOBIN 30.3 pg (27.0-31.0); MEAN CORPUSCULAR HGB CONC 33.6 g/dL (32.0-36.0); MEAN CORPUSCULAR VOLUME 90.1 fL (80.0-94.0); MEAN PLATELET VOLUME 9.1 fL (7.4-11.4); MONOCYTES # (AUTO) 0.8 10^3/uL (0.0-1.0); MONOCYTES % (AUTO) 5.9 %; NEUTROPHILS # (AUTO) 9.7 10^3/uL (1.5-6.6); NEUTROPHILS % (AUTO) 75.1 %; PLT - PLATELET COUNT 335 10^3/uL (130-450); RED BLOOD COUNT 4.33 10^6/uL (4.70-6.10); RED CELL DISTRIBUTION WIDTH 13.2 % (12.0-15.0)
[2019-01-17 14:13] LABS: ALBUMIN 3.9 g/dL (3.2-5.5); ALBUMIN/GLOBULIN RATIO 1.1 (1.0-2.2); BILIRUBIN,TOTAL 0.6 mg/dL (0.2-1.0); CALCIUM 8.8 mg/dL (8.5-10.3); TOTAL PROTEIN 7.3 g/dL (6.7-8.2)
[2019-01-17 14:44] LABS: BILIRUBIN,URINE NEGATIVE (NEGATIVE); GLUCOSE, URINE (UA) NEGATIVE (NEGATIVE); KETONES,URINE (UA) NEGATIVE (NEGATIVE); LEUKOCYTE ESTERASE, URINE NEGATIVE (NEGATIVE); NITRITE,URINE NEGATIVE (NEGATIVE); OCCULT BLOOD,URINE NEGATIVE (NEGATIVE); PROTEIN,URINE NEGATIVE (NEGATIVE); UROBILINOGEN,URINE 0.2 (NORMAL) E.U./dL (NORMAL)
[2019-01-17 14:45] LABS: CLARITY,URINE CLEAR (CLEAR)
[2019-01-17] MEDS ORDERED: POTASSIUM CHLORIDE 20 MEQ TABLET PO STA (14:55)
[2019-01-17 16:13] VITALS: BP 136/76
== END 2019-01-17 16:21 | disposition home or self-care (01) ==
LOC: EDUNIT# → ED 12:37
DX: N13.2 Hydronephrosis with renal and ureteral calculous obstruction (principal); I10 Essential (primary) hypertension; F17.200 Nicotine dependence, unspecified, uncomplicated
CPT/HCPCS: 36415; 74176; 80053; 81003; 83690; 85025; 96361; 96374; 96376; 99284; A9270; J1170; 81001; 87086

== ENCOUNTER 2020-12-13 08:00 | Outpatient (CLI) | payer OTHER | END 2020-12-13 08:01 | disposition home or self-care (01) | LOC: LAB.N 08:00 | PROVIDERS: ATTEND Family Medicine | DX: L03.115 Cellulitis of right lower limb (principal) | CPT/HCPCS: 87070; 87077; 87181; 87205 ==